=== PATIENT | male | born 1950 | race Caucasian/White ===

== ENCOUNTER 2019-08-31 12:49 | Emergency (ER) | payer MEDICARE, BC ==
[2019-08-31 13:22] VITALS: BP 131/73
--- NOTE | 2019-08-31 13:31 | UC ---
Respiratory Complaint HPI - HPI Summary HPI Summary: 69-year-old male who has had cough and cold symptoms for approximately one month. He states that his symptoms are improving however his wanted him to be checked. He states he did have a fever in the beginning of the illness but no longer. His sputum has been yellow but now it is clearing. He does complain of wheezing at night and in the morning frequent coughing. - History of Current Complaint Chief Complaint: UCRespiratory Stated Complaint: WHEEZY COUGH CONGESTION Time Seen by Provider: 08/31/19 13:16 Hx Obtained From: Patient Onset/Duration: Gradual Onset Timing: Intermittent Episodes Severity Initially: Mild Severity Currently: Mild - * Pain Intensity: 0 Character: Cough: Productive - Occasional productive cough of clearing sputum. Associated Signs And Symptoms: Positive: URI, Nasal Congestion - Allergies/Home Medications Allergies/Adverse Reactions: Allergies Allergy/AdvReac Type Severity Reaction Status Date / Time Penicillins Allergy Rash Verified 08/31/19 13:15 Home Medications: Home Medications Albuterol HFA INHALER* [Ventolin HFA Inhaler*] 1 puff DAILY 08/31/19 [History Confirmed 08/31/19] Aspirin EC TAB* [Ecotrin EC Low Dose 81 MG*] 1 tab DAILY 08/31/19 [History Confirmed 08/31/19] Budesonide Flexhaler 180 (NF) [Pulmicort Flexhaler 180 mcg/act (NF)] 1 puff DAILY 08/31/19 [History Confirmed 08/31/19] Fenofibrate,Micronized [Fenofibrate] 1 cap DAILY 08/31/19 [History Confirmed 12/15] Omeprazole 20 mg PO DAILY 08/31/19 [History Confirmed 08/31/19] PMH/Surg Hx/FS Hx/Imm Hx Previously Healthy: Yes Endocrine History: Dyslipidemia Respiratory History: Asthma - Surgical History Surgical History: None - Family History Known Family History: Positive: Non-Contributory - 1 - Social History Occupation: Retired Lives: With Family Alcohol Use: Weekly Substance Use Type: None Smoking Status (MU): Never Smoked Tobacco Review of Systems All Other Systems Reviewed And Are Negative: Yes ENT: Positive: Nasal Discharge Respiratory: Positive: Cough, Other - Patient states early in the illness he did have a productive cough of yellow sputum but now that is clearing. He does notice wheezing at night and in the morning a lot of coughing after he first wakes up but then that clears throughout the day. Is Patient Immunocompromised?: No Physical Exam Triage Information Reviewed: Yes Appearance: Well-Appearing, No Pain Distress, Well-Nourished Vital Signs: Initial Vital Signs Temp 98.6 F 08/31/19 13:17 Pulse 82 08/31/19 13:17 Resp 16 08/31/19 13:17 BP 131/73 08/31/19 13:17 Pulse Ox 97 08/31/19 13:17 Vital Signs Reviewed: Yes Eyes: Positive: Conjunctiva Clear ENT: Positive: Pharynx normal, Nasal drainage - Clear nasal coryza, TMs normal, Uvula midline Neck: Positive: Supple, Nontender, No Lymphadenopathy Respiratory: Positive: No respiratory distress, No accessory muscle use, Rhonchi - Very mild rhonchi and wheezing with forced expiration. No distress. Good air movement throughout., Wheezing Cardiovascular: Positive: RRR, No Murmur, Pulses Normal, Brisk Capillary Refill Musculoskeletal Exam: Normal Neurological Exam: Normal Psychological Exam: Normal Skin Exam: Normal Respiratory Course/Dx - Course Course Of Treatment: Chest: Indication: Cough. 2 views of the chest demonstrate no mediastinal shift. Heart is normal in size and configuration. Lung pollock are clear. IMPRESSION: No active cardiopulmonary disease is noted. DuoNeb treatment: The wheezing has almost completely cleared. Good air movement. Patient feels like he is taking a better breath. I am going to start him on prednisone taper. I don't feel at this point he needs an antibiotic because he is not running a fever, he is feeling better, his sputum is now clearing. - Differential Dx/Diagnosis Provider Diagnosis: Bronchitis Discharge ED - Sign-Out/Discharge Documenting (check all that apply): Patient Departure All imaging exams completed and their final reports reviewed: Yes - Discharge Plan Condition: Good Disposition: HOME Prescriptions: predniSONE 10 mg TAB [Deltasone 10 MG TAB*] 10 mg PO DAILY 12 Days #30 tab Patient Education Materials: Acute Bronchitis (ED) Referrals: Carroll Mercado MD [Primary Care Provider] - Additional Instructions: Increase fluids, take the prednisone with food. Follow-up with your primary care provider for any worsening symptoms or if no improvement in 3 or 4 days. - Billing Disposition and Condition Condition: GOOD Disposition: Home
[2019-08-31] MEDS ORDERED: Albuterol/Ipratropium NEB.SOL* Albuterol 2.5 MG/Ipratropium 0.5 MG 3 ML INH ONE (13:35)
== END 2019-08-31 14:42 | disposition home or self-care (01) ==
LOC: UCCORT 12:49
DX: J45.909 Unspecified asthma, uncomplicated (principal); E78.5 Hyperlipidemia, unspecified; Z88.0 Allergy status to penicillin; Z79.82 Long term (current) use of aspirin; Z79.899 Other long term (current) drug therapy
CPT/HCPCS: 71046; 99202; A9270-GY; G0463